=== PATIENT | male | born 2005 | race Two or more races ===

== ENCOUNTER 2024-08-14 15:32 | Emergency (ER) | payer MEDICAID, SELFPAY ==
[2024-08-14 15:33] VITALS: BMI 28.1
[2024-08-14 16:30] VITALS: BP 132/85; PULSE 81; RESP 19; TEMP 36.6; O2SAT 96; BMI 26.9
--- NOTE | 2024-08-14 16:42 | PD.EDRME ---
Rapid Medical Screening Exam RME Arrival date/time: 08/14/24 15:32 18-year-old male presents emergency department complaining of bodyaches, abdominal pain, diarrhea, and generalized weakness. Chief Complaint: Abdominal Pain Time Seen by Provider: 08/14/24 16:35 Vital signs: Vital Signs Temperature 97.8 F 08/14/24 16:30 Pulse Rate 81 08/14/24 16:30 Respiratory Rate 19 08/14/24 16:30 Blood Pressure 132/85 H 08/14/24 16:30 Pulse Oximetry (%) 96 08/14/24 16:30 Oxygen Delivery Method Room Air 08/14/24 16:30 Vital signs reviewed by provider: Yes
[2024-08-14 18:12] LABS: Basophils % (Auto) 0 % (0-2.5); Eosinophils % (Auto) 0 % (0-10); Hematocrit 45.6 % (41.0-53.0); Hemoglobin 15.9 g/dL (13.5-16.0); Immature Granulocytes % (Auto) 0 % (0-0); Immature Granulocytes Auto 0.02 Thou/mm3 (0.00-0.00); Lymphocytes # (Auto) 1.5 Thou/mm3 (1.0-4.8); Lymphocytes % (Auto) 20 % (10-50); Mean Corpuscular HGB Conc 34.9 g/dl (31.0-37.0); Mean Corpuscular Hemoglobin 30.2 pg (25.0-35.0); Mean Corpuscular Volume 87 fL (80-100); Monocytes # (Auto) 0.4 Thou/mm3 (0.0-0.8); Monocytes % (Auto) 6 % (0-12); Neutrophils # (Auto) 5.5 Thou/mm3 (1.8-7.7); Neutrophils % (Auto) 73 % (37-80); Nucleated Red Blood Cell % 0 /100 WBC (0); Platelet Count 262 Thou/mm3 (140-440); RDW Standard Deviation 37.2 fL (35.1-43.9); Red Blood Count 5.26 Miln/mm3 (4.50-5.90); White Blood Count 7.5 Thou/mm3 (4.5-11.0)
[2024-08-14 18:38] LABS: Alanine Aminotransferase 16 U/L (10-49); Albumin, Serum 5.4 gm/dL (3.5-5.0); Albumin/Globulin Ratio 2.3 (1.2-2.2); Alkaline Phosphatase 66 U/L (46-116); Anion Gap 9 (7-16); Aspartate Amino Transferase 18 U/L (0-34); BUN/Creatinine Ratio 16 Ratio (12-20); Bilirubin,Total 0.7 mg/dL (0.3-1.2); Blood Urea Nitrogen 13 mg/dL (9-23); Calcium 10.6 mg/dL (8.3-10.6); Calcium (Corrected) 10.6 mg/dL (8.5-10.1); Carbon Dioxide 28.4 mMol/L (20.0-31.0); Chloride 105 mMol/L (98-107); Creatinine (Component) 0.8 mg/dL (0.6-1.3); Estimated Creatinine Clearance 161.7 mL/min (>60); Globulin 2.4 gm/dL (2.3-3.5); Glucose 93 mg/dL (74-106); Lipase 32 U/L (12-53); Osmolality,Calculated 283 (275-295); Potassium 3.6 mMol/L (3.4-5.1); Sodium 142 mMol/L (136-145); Total Protein 7.8 gm/dL (5.7-8.2); eGFR > 60 See Note
[2024-08-14 19:36] LABS: Collection Type, Urine Clean Catch; Squamous Epithelial Cell,Urine 0 /hpf (0-5)
[2024-08-14 19:45] LABS: Bilirubin,Urine Negative (Negative); Blood,Urine Negative (Negative); Clarity,Urine Turbid (Clear/Hazy); Color,Urine Yellow (Lt Yel-Yel); Culture Indicated,Urine Not Indicated; Glucose, Urine Negative (Negative); Ketones,Urine 2+ (Negative); Leukocyte Esterase,Urine Negative (Negative); Nitrite,Urine Negative (Negative); PH,Urine 6.5 (5.0-7.0); Protein,Urine 1+ (Neg - Trace); RBC,Urine 12 /hpf (0-3); Specific Gravity,Urine 1.034 (1.001-1.035); Urobilinogen,Urine Negative mg/dL (0.0-1.0); WBC,Urine 3 /hpf (0-5)
[2024-08-14 19:47] VITALS: BP 132/80; PULSE 78; RESP 18; TEMP 37; O2SAT 97
[2024-08-14 20:05] LABS: Amphetamine/Methamp Scrn,U Negative (Negative); Barbiturate Screen,Urine Negative (Negative); Benzodiazepines Screen,Urine Negative (Negative); Benzoylecgonine Screen, Ur Negative (Negative); Fentanyl Screen,Urine Negative (Negative); Opiate Screen,Urine Negative (Negative); THC Screen,Urine Positive (Negative)
--- NOTE | 2024-08-14 20:33 | PD.EDABDPN ---
ED Abdominal Pain RME/HPI General Chief Complaint: Abdominal Pain Stated complaint: ABD AND LEFT NECK PAIN WITH LEFT ARM PAIN [id number] Time seen by provider: 08/14/24 16:35 Arrival date/time: 08/14/24 15:32 RME / HPI RME / HPI narrative: 08/14/24 15:32 18-year-old male presents emergency department complaining of bodyaches, abdominal pain, diarrhea, and generalized weakness. ------ Dr. Navarro?s Main ED Evaluation: 18yo male with no significant past medical history presents to the ED for a chief complaint of generalized body aches. Patient states he's had body aches, diarrhea, abdominal pain, and generalized weakness for the last 1 week. He reports associated nausea. He denies any fever, chills, nausea, vomiting, diarrhea or any other associated symptoms. No known allergies. Related Data Previous Rx's ?Medication ?Instructions ?Recorded acetaminophen 500 mg capsule 1,000 mg (2 x 500 mg) PO Q6H PRN 08/14/24 fever or pain #40 caps ibuprofen 600 mg tablet 600 mg PO Q6H PRN fever or pain 08/14/24 #30 tabs ondansetron 4 mg disintegrating 4 mg PO Q6H PRN nausea and 08/14/24 tablet vomiting 4 days #14 tabs Allergies Allergy/AdvReac Type Severity Reaction Status Date / Time No Known Allergies Allergy Verified 08/14/24 15:36 Review of Systems Review of Systems Systems Reviewed: All systems reviewed, normal except as documented Past Medical History Social History SMOKING STATUS: Smoker, status unknown ED Exam Narrative Physical exam: GENERAL APPEARANCE: alert and oriented x 4, well-developed, well-nourished, no acute distress VITALS: All vitals were reviewed and the pulse ox is 97% on room air, which is normal according to my interpretation. HEENT: Normocephalic, atraumatic; pupils equal, round, reactive to light; EOMI; mucous membranes pink, moist; oropharynx clear NECK: Supple LUNGS: CTABL; no wheezes, no rales, no rhonchi HEART: Regular rate, regular rhythm; normal S1, S2; no murmurs ABDOMEN: non distended; normal BS; soft, no tenderness, no guarding, no rebound; no masses, no organomegaly, no hernia BACK: no CVA tenderness EXTREMITIES: atraumatic; no edema NEUROLOGIC: awake; alert and oriented x4; cranial nerves II-XII grossly intact; no focal sensory or motor deficits PSYCHIATRIC: appropriate mood and affect SKIN: warm, dry, normal color; no rashes Course Quality Measures none Orders Category Date Time Status Bedside Influenza A&B Antigen Test NOW Care 08/14/24 16:41 Completed CBC Stat Lab 08/14/24 18:05 Completed CMP [Comprehensive Metabolic Panel] Stat Lab 08/14/24 18:05 Completed Drug Screen,Urine Stat Lab 08/14/24 19:30 Completed Lipase Stat Lab 08/14/24 18:05 Completed Urinalysis, C/S if Indicated Stat Lab 08/14/24 19:30 Completed Acetaminophen Tab [Tylenol ES Tab] Med 08/14/24 20:27 Discontinued 1,000 mg PO X1 ONE Ibuprofen Tab [Motrin Tab] Med 08/14/24 20:27 Discontinued 600 mg PO X1 ONE Vital Signs Vital signs: Vital Signs Temperature 97.8 F 08/14/24 16:30 Pulse Rate 81 08/14/24 16:30 Respiratory Rate 19 08/14/24 16:30 Blood Pressure 132/85 H 08/14/24 16:30 Pulse Oximetry (%) 96 08/14/24 16:30 Oxygen Delivery Method Room Air 08/14/24 16:30 Abdominal Pain MDM Patient data External records reviewed:: [facility] previous records (Per chart review, patient has no previous ED visits or admissions to this facility.) Clinical information provided by:: patient Social determinants that could affect healthcare access:: none Patient has the following chronic illnesses:: none How is presenting disease/condition affected by chronic disease/condition?: no chronic disease Evaluation data The following diagnostics were reviewed and interpreted by me:: lab results Lab and/or radiology exams considered but not ordered:: none Interpretation Summary: CBC is normal, CMP is normal, Lipase is normal, UA is unremarkable, UDS is positive for marijuana, Bedside Influenza is negative, according to my interpretation. Medications / Prescriptions Medications or Prescriptions considered but not ordered:: none Medication administrations:: Medication Administration History Discontinued Medications Acetaminophen (Acetaminophen 500 Mg Tablet) 1,000 mg PO X1 ONE Stop: 08/14/24 20:28 Last Admin: 08/14/24 20:35 Dose: 1,000 mg Documented By: CCT Ibuprofen (Ibuprofen Tab 600 Mg Tablet) 600 mg PO X1 ONE Stop: 08/14/24 20:28 Last Admin: 08/14/24 20:35 Dose: 600 mg Documented By: CCT see above Consultations Consultation(s) initiated? (list below): No Diagnosis Differential diagnosis abdominal pain: abdominal pain and other (COVID, Influenza) Most likely diagnosis given after review of the tests above:: viral syndrome Admission Indicated Admission indicated?: not indicated Admission Request Was there a request for admission?: No Disposition Plan Disposition Plan: Discharge Discharge Attestation Discharge Attestation: The patient and all family members were given an opportunity to ask questions and understood the discharge instructions. Discharge instructions specifically effects, indications for sooner follow up or return to the emergency department, and the expected course of current diagnosis. Patient condition: Stable Discharge Plan Plan Patient Disposition: HOME (Self Care) Disposition Comment: Stable for discharge Patient condition on transfer: Stable Prescriptions/Referrals Prescriptions/Med Rec: New ibuprofen 600 mg tablet 600 mg PO Q6H PRN (Reason: fever or pain) Qty: 30 0RF acetaminophen 500 mg capsule 1,000 mg PO Q6H PRN (Reason: fever or pain) Qty: 40 0RF ondansetron 4 mg tablet,disintegrating 4 mg PO Q6H PRN (Reason: nausea and vomiting) 4 Days Qty: 14 0RF Referrals: [facility] [Outside] - In 1 week No Primary/Family,Physician [Primary Care Provider] - In 1 week Problem List Clinical Impression: Myalgia, Vomiting, Acute viral syndrome Patient/Caregiver Discharge Instructions Discharge Activity: activity as tolerated Education Materials: ED Myalgias, ED Viral Syndrome (Adult), ED Vomiting (Adult) Additional Instructions: I believe you have a viral illness. This is a whole body illness that is caused by a virus. Typically these last about a week although some last a little bit longer. Your influenza tests were negative today. Your blood work was normal and did not show any problems with your kidneys, liver, heart, pancreas or any other organs. If you feel like you are not getting better within the next 48 hours or if you are getting worse please return to the emergency department Otherwise you should follow-up in the family clinic within the next several days Print Language: Belgian Stand Alone Forms: Kasia Award Info., Patient Portal Info Letter
[2024-08-14] MEDS: ACETAMINOPHEN 500 MG TABLET 1000 MG PO (20:35)
[2024-08-14] MEDS: IBUPROFEN TAB 600 MG TABLET PO (20:35)
[2024-08-14 20:45] VITALS: BP 127/74; PULSE 80; RESP 18; TEMP 37.1; O2SAT 98
== END 2024-08-14 20:45 | disposition home or self-care (01) ==
PROVIDERS: Emergency Provider Emergency Medicine
DX: B34.9 Viral infection, unspecified (principal)
CPT/HCPCS: 36415; 80053; 80307; 81001; 83690; 85025; 87400; 99283; A9270